=== PATIENT | female | born 1985 | race Caucasian/White ===

== ENCOUNTER 2018-07-13 17:07 | Emergency (ER) | payer MEDICAID ==
[2018-07-13 17:28] VITALS: O2SAT 98
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
[2018-07-13 19:04] VITALS: BP 133/73; PULSE 85; RESP 18; TEMP 98.2
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
== END 2018-07-13 20:10 | disposition home or self-care (01) ==
LOC: C.ER 17:07
DX: S09.90XA Unspecified injury of head, initial encounter (principal); Y04.0XXA Assault by unarmed brawl or fight, initial encounter; S50.12XA Contusion of left forearm, initial encounter; S50.11XA Contusion of right forearm, initial encounter; Y04.1XXA Assault by human bite, initial encounter; F17.200 Nicotine dependence, unspecified, uncomplicated; M79.7 Fibromyalgia

== ENCOUNTER 2018-08-18 08:30 | Emergency (ER) | payer MEDICAID ==
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
[2018-08-18] MEDS ORDERED: Midazolam 2 MG/2 ML VIAL IV STA ×3 (08:52→10:25)
[2018-08-18] MEDS ORDERED: Midazolam 2 MG/2 ML VIAL ONE ×2 (09:01→10:04)
[2018-08-18 09:07] LABS: BASO # 0.1 K/uL (0.0-0.2); BASO % 0.6 % (0.0-2.0); EOS % 0.3 % (0.0-4.0); HEMOGLOBIN 11.2 g/dL (11.0-16.0); LYMPH # 2.6 K/uL (1.0-4.3); LYMPH % 23.7 % (20.0-40.0); MEAN CELL VOLUME 82.9 fL (81.0-99.0); MEAN CORPUSCULAR HEMOGLOBIN 27.4 pg (27.0-31.0); MEAN CORPUSCULAR HGB CONC 33.1 g/dL (33.0-37.0); MEAN PLATELET VOLUME 7.8 fL (7.2-11.7); MONO # 0.8 K/uL (0.0-0.8); MONO % 7.3 % (0.0-10.0); NEUT # 7.3 K/uL (1.8-7.0); NEUT % 68.1 % (50.0-75.0); RBC 4.09 Mil/uL (3.80-5.20); RED CELL DISTRIBUTION WIDTH 16.5 % (11.5-14.5); WHITE BLOOD COUNT 10.8 K/uL (4.8-10.8)
[2018-08-18 09:22] LABS: ALB/GLOB RATIO 1.2 (1.0-2.1); ALBUMIN 4.3 g/dL (3.5-5.0); ALT/SGPT 17 U/L (9-52); AST/SGOT 33 U/L (14-36); BLOOD UREA NITROGEN 3 mg/dL (7-17); CALCIUM 9.6 mg/dl (8.6-10.4); GFR NON-AFRICAN AMERICAN > 60
[2018-08-18] MEDS ORDERED: Potassium Chloride 20 mEq/15 ml LIQ UD PO STA (09:25)
--- NOTE | 2018-08-18 09:32 | RAD ---
HISTORY: AMS COMPARISON: Chest x-ray performed 07/13/18 TECHNIQUE: Chest, one view. FINDINGS: Examination limited by habitus and hypoinflation. LUNGS: No focal consolidation. Please note that chest x-ray has limited sensitivity for the detection of pulmonary masses. PLEURA: No significant pleural effusion identified. No definite pneumothorax . CARDIOVASCULAR: Heart size appears within normal limits. Prominent mediastinum may reflect uncoiled aorta. Alternatives including but not limited to adenopathy are not excluded. OSSEOUS STRUCTURES: No acute osseous abnormality identified. VISUALIZED UPPER ABDOMEN: Unremarkable. OTHER FINDINGS: None. IMPRESSION: Examination limited by habitus and hypoinflation. No focal consolidation, significant pleural effusion, or definite pneumothorax identified. Prominent mediastinum may reflect uncoiled aorta. Alternatives including but not limited to adenopathy are not excluded. If indicated CT of the chest with IV contrast may be considered for further evaluation.
[2018-08-18] MEDS ORDERED: Potassium Chloride 20 mEq/15 ml LIQ UD ONE (09:36)
[2018-08-18 09:46] VITALS: TEMP 98.6
[2018-08-18 09:55] LABS: URINE BILIRUBIN NEGATIVE (NEGATIVE); URINE BLOOD NEGATIVE (NEGATIVE); URINE CLARITY Clear (Clear); URINE COLOR Colorless (YELLOW); URINE GLUCOSE (UA) NORMAL (Normal); URINE LEUKOCYTE ESTERASE NEG Leu/uL (Negative); URINE PROTEIN NEGATIVE (NEGATIVE); URINE UROBILINOGEN NORMAL mg/dL (0.2-1.0)
[2018-08-18 10:40] LABS: BARBITURATES, UR NEGATIVE (NEGATIVE)
[2018-08-18 10:44] LABS: BENZODIAZEPINES, UR NEGATIVE (NEGATIVE); OPIATES, UR NEGATIVE (NEGATIVE)
[2018-08-18 10:46] LABS: PHENCYCLIDINE, UR POSITIVE (NEGATIVE)
--- NOTE | 2018-08-18 13:33 | CT ---
Date of service: 08/18/2018 PROCEDURE: CT HEAD WITHOUT CONTRAST. HISTORY: AMS COMPARISON: Noncontrast head CT performed 07/13/18 TECHNIQUE: Axial computed tomography images were obtained through the head/brain without intravenous contrast. Radiation dose: Total exam DLP = 1052.37 mGy-cm. This CT exam was performed using one or more of the following dose reduction techniques: Automated exposure control, adjustment of the mA and/or kV according to patient size, and/or use of iterative reconstruction technique. FINDINGS: HEMORRHAGE: No intracranial hemorrhage. BRAIN: No mass effect or edema. No atrophy or chronic microvascular ischemic changes.Please note that MRI with diffusion imaging is more sensitive in the detection of acute ischemic event. VENTRICLES: No hydrocephalus. CALVARIUM: Unremarkable. PARANASAL SINUSES: Unremarkable as visualized. No significant inflammatory changes. MASTOID AIR CELLS: Unremarkable as visualized. No inflammatory changes. OTHER FINDINGS: None. IMPRESSION: No acute intracranial pathology identified.
[2018-08-18 15:15] VITALS: O2SAT 98
[2018-08-18 15:41] VITALS: BP 117/48; PULSE 80; RESP 16
--- NOTE | 2018-08-20 21:39 | CARD ---
APPROVED REPORT Date of service: 08/18/2018 EKG Measurement Heart [id number] <Conclusion> Normal sinus rhythm
== END 2018-08-18 17:59 | disposition home or self-care (01) ==
LOC: C.ER 08:30
DX: F16.129 Hallucinogen abuse with intoxication, unspecified (principal); F17.210 Nicotine dependence, cigarettes, uncomplicated; M79.7 Fibromyalgia
CPT/HCPCS: 70450; 71045; 80053; 80320; 80324; 80345; 80346; 80349; 80353; 80358; 80361; 81001; 82948; 83992; 84702; 84703; 85025; 93005; 96372; 99285; J2250; J3486

== ENCOUNTER 2018-09-15 19:32 | Emergency (ER) | payer MEDICAID ==
[2018-09-15] MEDS ORDERED: Albuterol-Ipratrop 3 mg / 0.5 (3 ml) UD IH STA (20:18)
[2018-09-15] MEDS ORDERED: Albuterol 0.083% Inhal Sol (2.5 mg/3 mL) UD INH STA (20:18)
[2018-09-15] MEDS ORDERED: Albuterol 0.083% Inhal Sol (2.5 mg/3 mL) UD ONE ×2 (20:27→20:36)
[2018-09-15] MEDS ORDERED: Albuterol-Ipratrop 3 mg / 0.5 (3 ml) UD ONE (20:36)
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
[2018-09-15 22:06] VITALS: BP 127/82; PULSE 85; RESP 18; TEMP 98.4
[2018-09-15 23:21] VITALS: O2SAT 97
--- NOTE | 2018-09-16 14:17 | RAD ---
Date of service: 09/15/2018 HISTORY: cough COMPARISON: Comparison chest 08/18/2018 TECHNIQUE: Chest PA and lateral FINDINGS: LUNGS: No active pulmonary disease. PLEURA: No significant pleural effusion identified. No pneumothorax apparent. CARDIOVASCULAR: No aortic atherosclerotic calcification present. Normal cardiac size. No pulmonary vascular congestion. OSSEOUS STRUCTURES: No significant abnormalities. VISUALIZED UPPER ABDOMEN: Normal. OTHER FINDINGS: None. IMPRESSION: No active disease.
== END 2018-09-15 22:07 | disposition home or self-care (01) ==
LOC: C.ER 19:32
DX: J40 Bronchitis, not specified as acute or chronic (principal); F17.210 Nicotine dependence, cigarettes, uncomplicated; M79.7 Fibromyalgia

== ENCOUNTER 2018-12-30 00:29 | Emergency (ER) | payer MEDICAID, OTHER ==
[2018-12-30 00:30] VITALS: BMI 32.5
[2018-12-30 00:42] VITALS: RESP 14; TEMP 98.4
--- NOTE | 2018-12-30 01:14 | C.PDOC ---
History Of Present Illness 33 year old female presents to the ED for evaluation of bilateral leg pain for "a long time." Patient states she has been diagnosed with fibromyalgia, but has not followed up with a specialist. She presents to the ED requesting pain medication because the NSAIDS she has been taking are not helping. Patient denies fever, chills, calf pain, recent prolonged travel, or oral contraceptive use. Time Seen by Provider: 12/30/18 00:53 Chief Complaint (Nursing): Lower Extremity Problem/Injury History Per: Patient History/Exam Limitations: no limitations Onset/Duration Of Symptoms: Days Current Symptoms Are (Timing): Still Present Additional History Per: Patient Past Medical History Reviewed: Historical Data, Nursing Documentation, Vital Signs Vital Signs: Last Vital Signs Temp 98.4 F 12/30/18 00:39 Pulse 84 12/30/18 00:39 Resp 14 12/30/18 00:39 BP 106/71 12/30/18 00:39 Pulse Ox 99 12/30/18 00:39 - Medical History PMH: Anxiety (haven't taken celexa in a while), Asthma, Fibromyalgia Denies: Chronic Kidney Disease Surgical History: Cholecystectomy (2006) Family History: States: Unknown Family Hx - Social History Hx Tobacco Use: Yes (heavy smoker) Hx Alcohol Use: Yes Hx Substance Use: No - Immunization History Hx Tetanus Toxoid Vaccination: No Hx Influenza Vaccination: No Hx Pneumococcal Vaccination: No Review Of Systems Constitutional: Negative for: Fever, Chills Musculoskeletal: Positive for: Leg Pain Physical Exam - Physical Exam Appears: Non-toxic, No Acute Distress Skin: Normal Color, Warm, Dry, Other (no rash or erythema to bilateral lower extremities ) Head: Atraumatic, Normacephalic Eye(s): bilateral: Normal Inspection Neck: Supple Chest: Symmetrical, No Deformity Cardiovascular: Rhythm Regular, No Murmur Respiratory: Normal Breath Sounds, No Rales, No Rhonchi, No Wheezing Extremity: Normal ROM, No Tenderness, Capillary Refill (less than 2 seconds ), No Deformity, No Swelling Pulses: Left Dorsalis Pedis: Normal, Right Dorsalis Pedis: Normal Neurological/Psych: Normal Speech, Normal Cognition, Normal Sensation Gait: Steady ED Course And Treatment O2 Sat by Pulse Oximetry: 99 (on RA) Pulse Ox Interpretation: Normal Progress Note: Motrin PO given. On reassessment, patient is resting comfortably, showing no signs of distress and reports an improvement in her pain. Patient is ambulatory in the ED with a steady gait and is stable for discharge. She is advised to f/u with her PMD within 1-2 days for further evaluation. 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 - Scribe Statement The provider has reviewed the documentation as recorded by the Scribe (Tesha Rangel) All medical record entries made by the Scribe were at my direction and personally dictated by me. I have reviewed the chart and agree that the record accurately reflects my personal performance of the history, physical exam, medical decision making, and the department course for this patient. I have also personally directed, reviewed, and agree with the discharge instructions and disposition.
[2018-12-30 01:58] VITALS: BP 110/68; PULSE 88
[2018-12-30 06:34] VITALS: O2SAT 99
== END 2018-12-30 01:56 | disposition home or self-care (01) ==
LOC: C.ER 00:29
DX: M79.605 Pain in left leg (principal); M79.604 Pain in right leg